=== PATIENT | female | born 1955 | race Caucasian/White ===

== ENCOUNTER 2024-01-15 13:28 | Emergency (ER) | payer MEDICARE ==
[2024-01-15] MEDS ORDERED: Ibuprofen 200 MG TAB ONE (13:55)
[2024-01-15] MEDS ORDERED: Bacitracin 1 PK ONE (13:55)
== END 2024-01-15 14:30 | disposition home or self-care (01) ==
LOC: NAV ERS 13:28
DX: S61.215A Laceration without foreign body of left ring finger without damage to nail, initial encounter (principal); E03.9 Hypothyroidism, unspecified; Z79.899 Other long term (current) drug therapy; Z23 Encounter for immunization; W26.0XXA Contact with knife, initial encounter
CPT/HCPCS: 90471